=== PATIENT | male | born 1970 | race Caucasian/White ===

== ENCOUNTER 2017-01-14 10:29 | Emergency (ER) | payer OTHER ==
[~2017-01-14] VITALS: Ht 177.8 cm; Wt 88.0 kg
[2017-01-14] MEDS ORDERED: NORVASC10 MG PO (10:41)
[2017-01-14 12:25] VITALS: BP 123/76
[2017-01-14] MEDS ORDERED: CIPROFLOXACIN500 M1 PO (12:26)
== END 2017-01-14 12:25 | disposition home or self-care (01) ==
LOC: ER 10:29
DX: S91.332A Puncture wound without foreign body, left foot, initial encounter (principal); F17.210 Nicotine dependence, cigarettes, uncomplicated; F10.99 Alcohol use, unspecified with unspecified alcohol-induced disorder; W22.8XXA Striking against or struck by other objects, initial encounter; Y93.89 Activity, other specified; Y92.89 Other specified places as the place of occurrence of the external cause; Y99.8 Other external cause status